=== PATIENT | female | born 1930 | race African-American/Black ===

== ENCOUNTER 2018-05-19 18:35 | Inpatient (IN) | payer MEDICARE, OTHER ==
[~2018-05-19] VITALS: Ht 162.6 cm; Wt 61.2 kg
[~2018-05-19 18:35] MED LIST: ATOR20TA65 PO; IRBE300T42 PO; LEVO75TA7 PO; TOLT4CAP PO; advil PO
[2018-05-19] MEDS ORDERED: MONT10TA24 MT (19:52)
[2018-05-19] MEDS ORDERED: NAPR-681 MT (19:52)
[2018-05-19] MEDS ORDERED: AMOX500T2 MT (19:52)
[2018-05-19 20:00] VITALS: BP 162/70
[2018-05-19 20:37] VITALS: BP 162/70
[2018-05-19] MEDS ORDERED: IPRATROPIUM/ALBUTEROL 0.5-3(2.5)MG/3ML NEB HHN PRN (22:30)
[2018-05-20] VITALS: BP 188/77
[2018-05-20] MEDS ORDERED: LEVOFLOXACIN 500MG PREMIX 100 ML IV NR
[2018-05-20 00:01] LABS: BASOPHILS % 1.3 % (0.0-2.0); EOSINOPHILS % 1.7 % (0.0-5.0); HEMATOCRIT. 37.5 % (36.0-48.0); HEMOGLOBIN. 12.7 g/dL (12.0-16.0); LYMPHOCYTES % 47.8 % (20.0-50.0); MEAN CORPUSCULAR HEMOGLOBIN 29.5 pg (28.0-32.0); MEAN CORPUSCULAR VOLUME 86.7 fL (81.0-99.0); MEAN PLATELET VOLUME 8.7 fl (7.4-10.4); MONOCYTES % 10.9 % (2.0-8.0); NEUTROPHILS % 38.3 % (40.0-76.0); PLATELET 150 x1000/uL (130-400); RED BLOOD CELL COUNT 4.32 mill/uL (4.2-5.4)
[2018-05-20 00:02] LABS: CLARITY URINE CLEAR (CLEAR); COLOR URINE YELLOW (YELLOW); KETONES URINE NEGATIVE (NEGATIVE); LEUKOCYTE ESTERASE URINE TRACE (NEGATIVE); NITRITE URINE NEGATIVE (NEGATIVE); OCCULT BLOOD URINE NEGATIVE (NEGATIVE); PROTEIN URINE NEGATIVE (NEGATIVE); SPECIFIC GRAVITY URINE 1.018 (1.005-1.030); UROBILINOGEN URINE 0.2 E.U./dL (0.2-1.0)
[2018-05-20 00:31] LABS: CHLORIDE 103 mEq/L (98-107)
[2018-05-20 00:37] LABS: HDL CHOLESTEROL 34 mg/dL (40-59)
[2018-05-20 00:40] LABS: LDL CHOLESTEROL 61 mg/dL (5-100)
[2018-05-20 04:00] VITALS: BP 163/60
[2018-05-20 06:54] LABS: BASOPHILS % 0.6 % (0.0-2.0); EOSINOPHILS % 1.6 % (0.0-5.0); HEMATOCRIT. 34.8 % (36.0-48.0); HEMOGLOBIN. 12.1 g/dL (12.0-16.0); LYMPHOCYTES % 51.7 % (20.0-50.0); MEAN CORPUSCULAR VOLUME 86.3 fL (81.0-99.0); MONOCYTES % 11.3 % (2.0-8.0); NEUTROPHILS % 34.8 % (40.0-76.0); PLATELET 162 x1000/uL (130-400); RED BLOOD CELL COUNT 4.03 mill/uL (4.2-5.4); RED CELL DISTRIBUTION WIDTH 13.8 % (11.6-14.6)
[2018-05-20 06:56] LABS: CHLORIDE 104 mEq/L (98-107)
[2018-05-20 07:09] LABS: TOTAL IRON BINDING CAPACITY 296 ug/dL (250-450)
[2018-05-20 07:11] LABS: PHOSPHORUS 2.8 mg/dL (2.5-4.9)
[2018-05-20 07:12] LABS: LDL CHOLESTEROL 58 mg/dL (5-100)
[2018-05-20 07:14] LABS: HDL CHOLESTEROL 33 mg/dL (40-59); T4 FREE 0.93 ng/dL (0.76-1.46)
[2018-05-20 08:00] VITALS: BP 185/73
[2018-05-20] MEDS: IPRATROPIUM/ALBUTEROL 0.5-3(2.5)MG/3ML NEB HHN SCH ×4 (08:19→21:59)
[2018-05-20] MEDS: ENOXAPARIN 40MG/0.4ML SYR SUBCUT SCH (08:37)
[2018-05-20] MEDS ORDERED: ENOXAPARIN 40MG/0.4ML SYR SUBCUT SCH ×2 (09:00)
[2018-05-20 12:00] VITALS: BP 172/68
[2018-05-20 16:00] VITALS: BP 146/46
[2018-05-20 20:00] VITALS: BP 130/58
[2018-05-20] MEDS ORDERED: [UNRECOGNIZED DRUG - OTHER] XX SCH (20:15)
[2018-05-20] MEDS ORDERED: LEVOFLOXACIN 500MG PREMIX 100 ML IV SCH (21:00)
[2018-05-20] MEDS: AMLODIPINE 5MG TABLET PO SCH (21:42)
[2018-05-20] MEDS ORDERED: MAGNESIUM 2 G PREMIX 50 ML IV NR (22:00)
[2018-05-21] VITALS: BP 149/53
[2018-05-21] MEDS: LEVOFLOXACIN 250MG PREMIX 50 ML IV SCH (02:22)
[2018-05-21 04:00] VITALS: BP 170/65
[2018-05-21 07:47] LABS: BASOPHILS % 0.6 % (0.0-2.0); EOSINOPHILS % 1.8 % (0.0-5.0); HEMOGLOBIN. 11.7 g/dL (12.0-16.0); MEAN CORPUSCULAR HEMOGLOBIN 29.3 pg (28.0-32.0); MEAN CORPUSCULAR VOLUME 85.2 fL (81.0-99.0); MEAN PLATELET VOLUME 9.1 fl (7.4-10.4); MONOCYTES % 11.3 % (2.0-8.0); NEUTROPHILS % 40.3 % (40.0-76.0); PLATELET 162 x1000/uL (130-400); RED BLOOD CELL COUNT 3.99 mill/uL (4.2-5.4); RED CELL DISTRIBUTION WIDTH 13.3 % (11.6-14.6)
[2018-05-21 08:00] VITALS: BP 188/75
[2018-05-21] MEDS: HYDROCHLOROTHIAZIDE 25MG TABLET PO SCH (08:22)
[2018-05-21] MEDS: SPIRONOLACTONE 25MG TABLET PO SCH (08:23)
[2018-05-21] MEDS: ENOXAPARIN 40MG/0.4ML SYR SUBCUT SCH (08:23)
[2018-05-21] MEDS: IPRATROPIUM/ALBUTEROL 0.5-3(2.5)MG/3ML NEB HHN SCH ×4 (08:27→21:00)
[2018-05-21] MEDS ORDERED: NON FORMULARY PATIENT HOME MED EA PO SCH (09:00)
[2018-05-21 09:12] LABS: CHLORIDE 102 mEq/L (98-107)
[2018-05-21 09:38] LABS: PHOSPHORUS 2.6 mg/dL (2.5-4.9)
[2018-05-21 09:41] LABS: T4 FREE 0.89 ng/dL (0.76-1.46)
[2018-05-21 12:00] VITALS: BP 166/70
[2018-05-21 16:00] VITALS: BP 143/84
[2018-05-21 20:00] VITALS: BP 153/83
[2018-05-21] MEDS: AMLODIPINE 5MG TABLET PO SCH (20:59)
[2018-05-22] VITALS: BP 182/75
[2018-05-22] MEDS: LEVOFLOXACIN 250MG PREMIX 50 ML IV SCH (00:12)
[2018-05-22 04:00] VITALS: BP 136/49
[2018-05-22] MEDS: SPIRONOLACTONE 25MG TABLET PO SCH (09:00)
[2018-05-22] MEDS: HYDROCHLOROTHIAZIDE 25MG TABLET PO SCH (09:00)
[2018-05-22] MEDS: ENOXAPARIN 40MG/0.4ML SYR SUBCUT SCH (09:36)
[2018-05-22] MEDS: IPRATROPIUM/ALBUTEROL 0.5-3(2.5)MG/3ML NEB HHN SCH ×2 (09:40→21:30)
[2018-05-22 20:00] VITALS: BP 146/65
[2018-05-22] MEDS: AMLODIPINE 5MG TABLET PO SCH (22:43)
[2018-05-23] VITALS (7 sets, daily range): BP systolic 109–133; BP diastolic 45–76
[2018-05-23] MEDS: LEVOFLOXACIN 250MG PREMIX 50 ML IV SCH (01:45)
[2018-05-23] MEDS: SPIRONOLACTONE 25MG TABLET PO SCH (09:36)
[2018-05-23] MEDS: HYDROCHLOROTHIAZIDE 25MG TABLET PO SCH (09:36)
[2018-05-23] MEDS: ENOXAPARIN 40MG/0.4ML SYR SUBCUT SCH (09:37)
[2018-05-23] MEDS: IPRATROPIUM/ALBUTEROL 0.5-3(2.5)MG/3ML NEB HHN SCH ×4 (11:22→22:24)
[2018-05-23] MEDS: AMLODIPINE 5MG TABLET PO SCH (21:31)
[2018-05-24] VITALS: BP 118/69
[2018-05-24] MEDS: LEVOFLOXACIN 250MG PREMIX 50 ML IV SCH (01:36)
[2018-05-24 04:00] VITALS: BP 132/68
[2018-05-24] MEDS: IPRATROPIUM/ALBUTEROL 0.5-3(2.5)MG/3ML NEB HHN SCH ×4 (07:59→21:20)
[2018-05-24 08:00] VITALS: BP 124/58
[2018-05-24] MEDS: HYDROCHLOROTHIAZIDE 25MG TABLET PO SCH (09:00)
[2018-05-24] MEDS: SPIRONOLACTONE 25MG TABLET PO SCH (09:00)
[2018-05-24] MEDS: ENOXAPARIN 40MG/0.4ML SYR SUBCUT SCH (09:28)
[2018-05-24] MEDS ORDERED: ONDANSETRON HCL 4MG/2ML INJ IV PRN ×2 (11:15→11:30)
[2018-05-24] MEDS: PANTOPRAZOLE SODIUM 40 MG/VIAL IV SCH ×2 (11:30→15:35)
[2018-05-24 12:00] VITALS: BP 124/58
[2018-05-24 13:25] LABS: BASOPHILS % 1.1 % (0.0-2.0); EOSINOPHILS % 3.7 % (0.0-5.0); HEMATOCRIT. 36.6 % (36.0-48.0); HEMOGLOBIN. 12.9 g/dL (12.0-16.0); LYMPHOCYTES % 31.9 % (20.0-50.0); MEAN CORPUSCULAR HEMOGLOBIN 29.5 pg (28.0-32.0); MEAN CORPUSCULAR VOLUME 83.3 fL (81.0-99.0); MONOCYTES % 14.5 % (2.0-8.0); NEUTROPHILS % 48.8 % (40.0-76.0); PLATELET 206 x1000/uL (130-400); RED BLOOD CELL COUNT 4.39 mill/uL (4.2-5.4); RED CELL DISTRIBUTION WIDTH 13.6 % (11.6-14.6)
[2018-05-24 13:54] LABS: CHLORIDE 85 mEq/L (98-107)
[2018-05-24 13:58] LABS: AMYLASE 40 IU/L (25-115)
[2018-05-24 14:00] LABS: PHOSPHORUS 2.3 mg/dL (2.5-4.9)
[2018-05-24 16:00] VITALS: BP 155/59
[2018-05-24] MEDS ORDERED: DEXT 5%/0.9% NACL 1,000 ML IV SCH (16:15)
[2018-05-24] MEDS: [UNRECOGNIZED DRUG - REMARK] IV SCH ×3 (17:31)
[2018-05-24 18:11] LABS: CHLORIDE 84 mEq/L (98-107)
[2018-05-24 18:17] LABS: PHOSPHORUS 2.4 mg/dL (2.5-4.9)
[2018-05-24] MEDS ORDERED: POTASSIUM PHOS,M-BASIC-D-BASIC 30 MMOL in SODIUM CHLORIDE 0.9% 500 ML IV NR (18:30)
[2018-05-24] MEDS ORDERED: MAGNESIUM 4 G PREMIX 100 ML IV NR (18:30)
[2018-05-24 20:00] VITALS: BP 161/68
[2018-05-24 20:17] LABS: VITAMIN B12 SERUM 478 pg/mL (211-911)
[2018-05-24 20:33] LABS: FOLIC ACID (FOLATE) SERUM > 20.00 ng/mL (>5.38)
[2018-05-24] MEDS: AMLODIPINE 5MG TABLET PO SCH (21:00)
[2018-05-25] VITALS: BP 142/57
[2018-05-25] MEDS ORDERED: DEXT 5%/0.2% NACL KCL 20MEQ/L 1,000 ML IV SCH (03:30)
[2018-05-25 04:00] VITALS: BP 122/56
[2018-05-25] MEDS: LEVOFLOXACIN 250MG PREMIX 50 ML IV SCH (05:13)
[2018-05-25] MEDS ORDERED: SODIUM CHLORIDE 3% 250 ML IV SCH (06:00)
[2018-05-25 07:17] LABS: HEMATOCRIT. 35.3 % (36.0-48.0); HEMOGLOBIN. 12.5 g/dL (12.0-16.0); MEAN CORPUSCULAR HEMOGLOBIN 29.6 pg (28.0-32.0); MEAN CORPUSCULAR VOLUME 83.4 fL (81.0-99.0); MEAN PLATELET VOLUME 9.8 fl (7.4-10.4); PLATELET 203 x1000/uL (130-400); RED BLOOD CELL COUNT 4.23 mill/uL (4.2-5.4); RED CELL DISTRIBUTION WIDTH 13.3 % (11.6-14.6)
[2018-05-25 07:59] LABS: CHLORIDE 83 mEq/L (98-107)
[2018-05-25 08:00] VITALS: BP 138/62
[2018-05-25 08:04] LABS: PHOSPHORUS 6.4 mg/dL (2.5-4.9)
[2018-05-25] MEDS: DEMECLOCYCLINE HCL 300MG TABLET PO SCH ×3 (09:42→21:55)
[2018-05-25] MEDS: IPRATROPIUM/ALBUTEROL 0.5-3(2.5)MG/3ML NEB HHN SCH ×5 (10:03→22:10)
[2018-05-25 12:00] VITALS: BP 145/87
[2018-05-25] MEDS ORDERED: [UNRECOGNIZED DRUG - REMARK] IV SCH ×3 (13:00)
[2018-05-25 13:10] LABS: 25-HYDROXY VITAMIN D3 23 ng/mL (.)
[2018-05-25 16:00] VITALS: BP_SYST 105; BP_SYST 108; BP_DIAS 51; BP_DIAS 85
[2018-05-25 16:50] LABS: PLATELET ESTIMATE NORMAL
[2018-05-25] MEDS: METOCLOPRAMIDE HCL 10MG/2ML VIAL IV SCH (18:21)
[2018-05-25] MEDS: LACTOBACILLUS GG CAPSULE PO SCH (18:21)
[2018-05-25] MEDS: [UNRECOGNIZED DRUG - REMARK] IV SCH ×3 (18:22)
[2018-05-25 20:00] VITALS: BP 107/51
[2018-05-25] MEDS: AMLODIPINE 5MG TABLET PO SCH (21:00)
[2018-05-26] VITALS: BP 95/41
[2018-05-26] MEDS: METOCLOPRAMIDE HCL 10MG/2ML VIAL IV SCH ×4 (00:09→17:29)
[2018-05-26] MEDS: LEVOFLOXACIN 250MG PREMIX 50 ML IV SCH (01:22)
[2018-05-26 04:00] VITALS: BP 116/51
[2018-05-26] MEDS: LEVOTHYROXINE SODIUM 75MCG TABLET PO SCH (06:07)
[2018-05-26] MEDS: DEMECLOCYCLINE HCL 300MG TABLET PO SCH ×3 (06:07→21:47)
[2018-05-26 07:45] LABS: CHLORIDE 92 mEq/L (98-107)
[2018-05-26] MEDS: IPRATROPIUM/ALBUTEROL 0.5-3(2.5)MG/3ML NEB HHN SCH ×2 (07:47→12:19)
[2018-05-26 08:00] VITALS: BP 128/57
[2018-05-26] MEDS: PANTOPRAZOLE SODIUM 40 MG/VIAL IV SCH (08:22)
[2018-05-26] MEDS: ERGOCALCIFEROL 50000UNITS CAPSULE PO SCH (08:22)
[2018-05-26] MEDS: LACTOBACILLUS GG CAPSULE PO SCH ×3 (08:22→17:28)
[2018-05-26] MEDS ORDERED: POTASSIUM CHLORIDE 20MEQ TABLET SR PO NR (08:30)
[2018-05-26] MEDS: [UNRECOGNIZED DRUG - REMARK] IV SCH ×3 (10:28)
[2018-05-26 12:00] VITALS: BP 118/67
[2018-05-26 16:00] VITALS: BP 130/65
[2018-05-26 20:04] VITALS: BP 115/61
[2018-05-26] MEDS: AMLODIPINE 5MG TABLET PO SCH (21:48)
[2018-05-27] VITALS: BP 113/61
[2018-05-27] MEDS: METOCLOPRAMIDE HCL 10MG/2ML VIAL IV SCH ×4 (01:12→17:55)
[2018-05-27] MEDS: LEVOFLOXACIN 250MG PREMIX 50 ML IV SCH (01:13)
[2018-05-27 03:05] LABS: CLARITY URINE CLEAR (CLEAR); COLOR URINE YELLOW (YELLOW); KETONES URINE NEGATIVE (NEGATIVE); LEUKOCYTE ESTERASE URINE TRACE (NEGATIVE); NITRITE URINE NEGATIVE (NEGATIVE); OCCULT BLOOD URINE NEGATIVE (NEGATIVE); PROTEIN URINE NEGATIVE (NEGATIVE); SPECIFIC GRAVITY URINE 1.006 (1.005-1.030); UROBILINOGEN URINE 0.2 E.U./dL (0.2-1.0)
[2018-05-27 04:00] VITALS: BP 100/56
[2018-05-27] MEDS ORDERED: COSYNTROPIN 0.25MG/ML VIAL IV NR (05:10)
[2018-05-27 06:34] LABS: BASOPHILS % 0.6 % (0.0-2.0); HEMATOCRIT. 38.6 % (36.0-48.0); HEMOGLOBIN. 13.3 g/dL (12.0-16.0); LYMPHOCYTES % 23.2 % (20.0-50.0); MEAN CORPUSCULAR HEMOGLOBIN 29.5 pg (28.0-32.0); MEAN CORPUSCULAR VOLUME 85.6 fL (81.0-99.0); MEAN PLATELET VOLUME 9.4 fl (7.4-10.4); MONOCYTES % 12.7 % (2.0-8.0); NEUTROPHILS % 61.5 % (40.0-76.0); PLATELET 223 x1000/uL (130-400); RED BLOOD CELL COUNT 4.51 mill/uL (4.2-5.4); RED CELL DISTRIBUTION WIDTH 13.5 % (11.6-14.6)
[2018-05-27] MEDS: DEMECLOCYCLINE HCL 300MG TABLET PO SCH ×3 (06:38→21:41)
[2018-05-27] MEDS: LEVOTHYROXINE SODIUM 75MCG TABLET PO SCH (06:38)
[2018-05-27 07:07] LABS: CHLORIDE 97 mEq/L (98-107)
[2018-05-27 07:24] LABS: PHOSPHORUS 2.1 mg/dL (2.5-4.9)
[2018-05-27 08:00] VITALS: BP 144/96
[2018-05-27 08:25] LABS: FOLICLE STIMULATING HORMONE 2.3 mIU/mL (.); LUTEINIZING HORMONE 0.2 mIU/mL (.); PROLACTIN 35.4 ng/mL (4.8-23.3)
[2018-05-27] MEDS: ERGOCALCIFEROL 50000UNITS CAPSULE PO SCH (09:00)
[2018-05-27] MEDS: LACTOBACILLUS GG CAPSULE PO SCH ×3 (09:22→17:55)
[2018-05-27] MEDS: PANTOPRAZOLE SODIUM 40 MG/VIAL IV SCH (09:22)
[2018-05-27] MEDS: IPRATROPIUM/ALBUTEROL 0.5-3(2.5)MG/3ML NEB HHN SCH ×3 (09:43→20:08)
[2018-05-27 12:00] VITALS: BP 120/46
[2018-05-27 16:00] VITALS: BP 125/44
[2018-05-27] MEDS: [UNRECOGNIZED DRUG - REMARK] IV SCH ×3 (17:55)
[2018-05-27] MEDS ORDERED: SODIUM PHOS,M-BASIC-D-BASIC 20 MM in DEXT 5% WATER 243.3333 ML IV NR (18:00)
[2018-05-27 20:00] VITALS: BP 116/61
[2018-05-27] MEDS: AMLODIPINE 5MG TABLET PO SCH (21:41)
[2018-05-27] MEDS: HYDROCORTISONE 20MG TABLET PO SCH (21:43)
[2018-05-28] VITALS: BP 139/54
[2018-05-28 04:00] VITALS: BP 116/53
[2018-05-28] MEDS: LEVOFLOXACIN 250MG PREMIX 50 ML IV SCH (04:28)
[2018-05-28] MEDS: DEMECLOCYCLINE HCL 300MG TABLET PO SCH ×3 (07:13→21:19)
[2018-05-28] MEDS: METOCLOPRAMIDE HCL 10MG/2ML VIAL IV SCH ×4 (07:14→18:26)
[2018-05-28 07:32] LABS: CHLORIDE 100 mEq/L (98-107)
[2018-05-28 07:39] LABS: PHOSPHORUS 3.1 mg/dL (2.5-4.9)
[2018-05-28] MEDS: IPRATROPIUM/ALBUTEROL 0.5-3(2.5)MG/3ML NEB HHN SCH ×4 (07:44→20:56)
[2018-05-28 07:45] LABS: BASOPHILS % 0.3 % (0.0-2.0); EOSINOPHILS % 1.1 % (0.0-5.0); HEMATOCRIT. 34.7 % (36.0-48.0); LYMPHOCYTES % 17.3 % (20.0-50.0); MEAN CORPUSCULAR HEMOGLOBIN 29.3 pg (28.0-32.0); MEAN CORPUSCULAR VOLUME 84.9 fL (81.0-99.0); MONOCYTES % 8.6 % (2.0-8.0); NEUTROPHILS % 72.7 % (40.0-76.0); PLATELET 240 x1000/uL (130-400); RED BLOOD CELL COUNT 4.09 mill/uL (4.2-5.4); RED CELL DISTRIBUTION WIDTH 13.7 % (11.6-14.6)
[2018-05-28 08:00] VITALS: BP 139/61
[2018-05-28] MEDS: LEVOTHYROXINE SODIUM 75MCG TABLET PO SCH (08:20)
[2018-05-28] MEDS: LACTOBACILLUS GG CAPSULE PO SCH ×3 (08:25→18:26)
[2018-05-28] MEDS: PANTOPRAZOLE SODIUM 40 MG/VIAL IV SCH (08:25)
[2018-05-28] MEDS: HYDROCORTISONE 20MG TABLET PO SCH ×2 (08:25→18:26)
[2018-05-28 12:00] VITALS: BP 125/57
[2018-05-28 16:00] VITALS: BP 133/74
[2018-05-28 19:47] VITALS: BP 144/49
[2018-05-28] MEDS: AMLODIPINE 5MG TABLET PO SCH (21:19)
[2018-05-29] VITALS: BP 123/55
[2018-05-29] MEDS: METOCLOPRAMIDE HCL 10MG/2ML VIAL IV SCH ×4 (00:15→17:49)
[2018-05-29 04:00] VITALS: BP 120/69
[2018-05-29] MEDS: DEMECLOCYCLINE HCL 300MG TABLET PO SCH ×2 (06:35→13:55)
[2018-05-29] MEDS: LEVOTHYROXINE SODIUM 75MCG TABLET PO SCH (06:35)
[2018-05-29] MEDS: IPRATROPIUM/ALBUTEROL 0.5-3(2.5)MG/3ML NEB HHN SCH ×3 (07:27→15:39)
[2018-05-29 07:42] LABS: CHLORIDE 104 mEq/L (98-107)
[2018-05-29 07:47] LABS: PHOSPHORUS 2.9 mg/dL (2.5-4.9)
[2018-05-29 08:00] VITALS: BP 152/51
[2018-05-29] MEDS: HYDROCORTISONE 20MG TABLET PO SCH ×2 (08:19→17:49)
[2018-05-29] MEDS: LACTOBACILLUS GG CAPSULE PO SCH ×3 (08:19→17:49)
[2018-05-29] MEDS: PANTOPRAZOLE SODIUM 40 MG/VIAL IV SCH (08:19)
[2018-05-29] MEDS: [UNRECOGNIZED DRUG - REMARK] IV SCH ×3 (08:20)
[2018-05-29 12:00] VITALS: BP 125/65
[2018-05-29] MEDS ORDERED: MAGNESIUM SULFATE 2 GM in DEXTROSE 5% WATER 50 ML IV NR (13:00)
[2018-05-29 16:00] VITALS: BP 114/50
[2018-05-29 17:53] VITALS: BP 114/50
== END 2018-05-29 18:25 | disposition home or self-care (01) | DRG 193 ==
LOC: 6EST 18:35
PROVIDERS: ADMIT Internal Medicine; ATTEND Internal Medicine
DX: J15.9 Unspecified bacterial pneumonia (principal); J96.00 Acute respiratory failure, unspecified whether with hypoxia or hypercapnia; E22.1 Hyperprolactinemia; E22.2 Syndrome of inappropriate secretion of antidiuretic hormone; J98.11 Atelectasis; E27.49 Other adrenocortical insufficiency; K31.84 Gastroparesis; J20.9 Acute bronchitis, unspecified; D63.8 Anemia in other chronic diseases classified elsewhere; E03.9 Hypothyroidism, unspecified; E78.5 Hyperlipidemia, unspecified; F03.90 Unspecified dementia, unspecified severity, without behavioral disturbance, psychotic disturbance, mood disturbance, and anxiety; H91.90 Unspecified hearing loss, unspecified ear; I11.9 Hypertensive heart disease without heart failure; I25.10 Atherosclerotic heart disease of native coronary artery without angina pectoris; I48.2 Chronic atrial fibrillation; Z95.0 Presence of cardiac pacemaker; K57.90 Diverticulosis of intestine, part unspecified, without perforation or abscess without bleeding; E55.9 Vitamin D deficiency, unspecified; E83.42 Hypomagnesemia; E83.51 Hypocalcemia; E87.6 Hypokalemia; M19.90 Unspecified osteoarthritis, unspecified site; M41.9 Scoliosis, unspecified; M47.816 Spondylosis without myelopathy or radiculopathy, lumbar region; M48.061 Spinal stenosis, lumbar region without neurogenic claudication; Z87.440 Personal history of urinary (tract) infections; R73.9 Hyperglycemia, unspecified; D64.9 Anemia, unspecified; J12.9 Viral pneumonia, unspecified
CPT/HCPCS: 36415; 71045; 74018; 74176; 76700; 80048; 80053; 80061; 80069; 80076; 81003; 82024; 82088; 82150; 82248; 82306; 82378; 82533; 82570; 82607; 82746; 82962; 83001; 83002; 83036; 83540; 83550; 83690; 83735; 84100; 84133; 84146; 84156; 84300; 84439; 84443; 84481; 84550; 85025; 85651; 93005; 93970; 94640; 94644; C1893; C9113; J0834; J1650; J1956; J2765; J3475; J3480; J3490; J7040; J7042; J7060; J7620